=== PATIENT | female | born 1975 | race Caucasian/White ===

== ENCOUNTER 2020-05-12 16:41 | Outpatient (CLI) | payer OTHER, SELFPAY ==
--- NOTE | ~2020-05-12 | MM_ITS ---
EXAMINATION: MM screening brittany BI w marilyn HISTORY: Screening TECHNIQUE: Craniocaudal and mediolateral oblique 3-D tomosynthesis images were obtained and synthetic 2-D images were generated. CAD analysis was submitted and interpreted. COMPARISON: Comparison to multiple prior studies sequentially, with oldest reviewed study dated 05/2016. BREAST PARENCHYMAL COMPOSITION: There are scattered areas of fibroglandular density. FINDINGS: Bilateral breast asymmetries are stable. There is no evidence of suspicious mass, calcifica tion, or architectural distortion to suggest malignancy in either breast. There has been no suspiciou s interval change. IMPRESSION: 1. No mammographic evidence of malignancy. 2. Recommend routine screening mammography in one year. BI-RADS Category 2: Benign finding(s). Reviewed, dictated and finalized at location A.
== END 2020-05-12 16:42 | disposition home or self-care (01) ==
LOC: ANHIMG 16:44
PROVIDERS: PCP Obstetrics & Gynecology; Visit Provider Obstetrics & Gynecology
DX: Z12.31 Encounter for screening mammogram for malignant neoplasm of breast (principal)
CPT/HCPCS: 77063; 77067

== ENCOUNTER 2021-07-30 10:07 | Outpatient (CLI) | payer BC, SELFPAY ==
--- NOTE | ~2021-07-30 | MM_ITS ---
EXAMINATION: MM screening brittany BI w marilyn HISTORY: Screening mammogram TECHNIQUE: Craniocaudal and mediolateral oblique 3-D tomosynthesis images were obtained and synthetic 2-D images were generated. CAD analysis was submitted and interpreted. COMPARISON: No prior mammogram is available for comparison at this institution. BREAST PARENCHYMAL COMPOSITION: The breasts are heterogeneously dense, which may obscure small masses . FINDINGS: There is a biopsy marker on the right; history of prior benign right breast biopsy. There i s no evidence of suspicious mass, calcification, or architectural distortion to suggest malignancy in either breast. There has been no suspicious interval change. IMPRESSION: 1. No mammographic evidence of malignancy. 2. Recommend routine screening mammography in one year. BI-RADS Category 1: Negative Reviewed, dictated and finalized at location A.
== END 2021-07-30 10:08 | disposition home or self-care (01) ==
LOC: ANHIMG 10:12
PROVIDERS: PCP Obstetrics & Gynecology; Visit Provider Obstetrics & Gynecology
DX: Z12.31 Encounter for screening mammogram for malignant neoplasm of breast (principal)
CPT/HCPCS: 77063; 77067

== ENCOUNTER 2023-03-14 15:23 | Outpatient (CLI) | payer BC, SELFPAY ==
--- NOTE | ~2023-03-14 | MM_ITS ---
EXAMINATION: MM screening brittany BI w marilyn HISTORY: Screening mammogram TECHNIQUE: Craniocaudal and mediolateral oblique 3-D tomosynthesis images were obtained and synthetic 2-D images were generated. CAD analysis was submitted and interpreted. COMPARISON: 07/30/2021, 05/12/2020, bilateral screening mammogram examinations BREAST PARENCHYMAL COMPOSITION: The breasts are heterogeneously dense, which may obscure small masses . FINDINGS: There is a biopsy marker on the right; history of prior benign right breast biopsy. Occasio nal benign microcalcifications are again present. There is no evidence of suspicious mass, calcificat ion, or architectural distortion to suggest malignancy in either breast. There has been no suspicious interval change. IMPRESSION: 1. No mammographic evidence of malignancy. 2. Recommend routine screening mammography in one year. BI-RADS Category 2: Benign finding(s). Reviewed, dictated and finalized at location A.
== END 2023-03-14 15:24 | disposition home or self-care (01) ==
PROVIDERS: PCP Obstetrics & Gynecology; Visit Provider Obstetrics & Gynecology
DX: Z12.31 Encounter for screening mammogram for malignant neoplasm of breast (principal)
CPT/HCPCS: 77063; 77067

== ENCOUNTER 2025-05-13 09:55 | Outpatient (CLI) | payer BC, SELFPAY ==
--- NOTE | ~2025-05-13 | MM_ITS ---
EXAMINATION: MM screening brittany BI w marilyn HISTORY: Screening TECHNIQUE: Craniocaudal and mediolateral oblique 3-D tomosynthesis images were obtained and synthetic 2-D images were generated. CAD analysis was submitted and interpreted. COMPARISON: Comparison to multiple prior studies sequentially, with oldest reviewed study dated 12/14. BREAST PARENCHYMAL COMPOSITION: Dense: The breasts are heterogeneously dense, which may obscure small masses FINDINGS: The right breast is stable without evidence for malignancy. There are developing masses in the lower inner quadrant of the left breast anteriorly and in the upper outer quadrant of the left br east, middle third. IMPRESSION: 1. Developing left breast masses. 2. Additional mammographic views and possible breast ultrasound are recommended. BI-RADS Category 0: Incomplete: Needs additional imaging evaluation. Reviewed, dictated and finalized at location A. IMPRESSION: 1. Developing left breast masses. 2. Additional mammographic views and possible breast ultrasound are recommended . BI-RADS Category 0: Incomplete: Needs additional imaging evaluation.
--- OUTSIDE RECORDS SUMMARY | 2025-05-13 10:37 | XMS_ITS | Clinical Summary ---
Author Organization [facility] Address [address] [place] [address] Care Team Providers Care Battery Assembler Dry Cell Name Role Phone Sree Bal MD Primary Care Provider [phone] Medications levothyroxine 150 mcg tablet Take 150 mcg by mouth daily demi chef. Active Active Problems Problem Noted Date Diagnosed Date Breast density 01/02/2018 Mammographic microcalcification 01/02/2018 Abnormal ultrasound of breast 01/02/2018 Family History Medical History Relation Name Comments Lung Cancer Maternal Grandmother Relation Name Status Comments Maternal Grandmother (Age 83) Un known age at diag Social History Tobacco Use Types Packs/Day Years Used Date Smoking Tobacco: Never Alcohol Use Standard Drinks/Week Comments Yes 0 (1 standard drink = 0.6 oz pur e alcohol) Rare Comments No Sex and Gender Information Value Date Recorded Sex Assigned at Not on file Legal Sex Female 9:38 AM CDT Gender Identity Not on file Sexual Orientation Not on file Last Filed Vital Signs Vital Sign Reading Time Taken Comments Blood Pressure 120/68 01/11/2018 9:12 AM CDT Pulse 90 01/11/2018 9:12 AM CDT Temperature 36.7 C (98.1 F) 01/11/2018 9:12 AM CDT Respiratory Rate 16 01/11/2018 9:12 AM CDT Oxygen Saturation 97% 01/11/2018 9:12 AM CDT Inhaled Oxygen Concentration - - Weight 89.7 kg (197 lb 12.8 oz) 01/11/2018 9:12 AM CDT Height 182.9 cm (6') 01/11/2018 9:12 AM CDT Body Mass Index 26.83 01/11/2018 9:12 AM CDT Plan of Treatment Health Maintenance Due Date Last Done Comments DTAP/TDAP/TD VACCINES (1 - Tdap) 1992 HEPATITIS B VACCINES (1 of 3 - 19+ 3-dose series) 1992 HPV/Cotest (21-29) 1994 CERVICAL CANCER SCREENING 2003 HPV/Cotest (30-65) 2003 PAP SMEAR 2003 COLORECTAL SCREENING 2018 Colorectal Cancer Screening 2018 FIT-DNA Q 3 years 2018 FIT/FOBT Q 1 year 2018 Flex Sig/CT Colonography Q 5 years 2018 BREAST CANCER SCREENING 01/02/2019 01/03/20 18, 12/14/2017, 12/14/2017, Additional history exists ZOSTER VACCINE (1 of 2) 2023 INFLUENZA VACCINE (#1) 2025 Procedures Procedure Name Priority Date/Time Associated Diagnosis Comments MAMMOGRAM REPORT Routine 01/02/2018 from Last 3 Months or Most Recently Relevant to Health Maintenance Results * MAMMOGRAM REPORT (01/02/2018) us Abstract Provider MAMMO ORDERABLES Final Result [facility] from Last 3 Months or Most Recently Relevant to Health Maintenance Care Teams Battery Assembler Dry Cell Relationship Specialty Start Date End Date Sree Bal MD PCP - General Internal Medicine 01/11/18
== END 2025-05-13 09:56 | disposition home or self-care (01) ==
PROVIDERS: PCP Obstetrics & Gynecology; Visit Provider Student in an Organized Health Care Education/Training Program
DX: Z12.31 Encounter for screening mammogram for malignant neoplasm of breast (principal); N63.24 Unspecified lump in the left breast, lower inner quadrant; N63.21 Unspecified lump in the left breast, upper outer quadrant
CPT/HCPCS: 77063; 77067

== ENCOUNTER 2025-06-05 11:08 | Outpatient (CLI) | payer BC, SELFPAY ==
--- NOTE | ~2025-06-05 | MMUS_ITS ---
EXAMINATION: US breast LT complete, MM diagnostic brittany LT w marilyn HISTORY: Inconclusive mammogram. Developing left breast masses. TECHNIQUE: [Additional images of the [[left breast]] were performed using full field digital mammography. 3-D tomosynthesis were also obtained and synthetic 2- D images were generated. CAD analysis was submitted and interpreted. High resolution [left breast ultrasound was performed.] ] COMPARISON: Mammograms from 05/13/2025, 03/14/2023 and 07/30/2021 BREAST PARENCHYMAL COMPOSITION: The breasts are heterogeneously dense, which may obscure small masses FINDINGS: MAMMOGRAPHIC FINDINGS: There is a 1.2 cm obscured mass in the left breast at the 9:00 position middle depth.The finding corresponds with a 1.2 cm hypoechoic cyst versus solid mass by sonography.The finding is probably benign. There is an asymmetry in the outer left breast, posterior depth, seen in the spot compression left craniocaudal projection. No convincing sonographic correlate. The finding is probably benign. ULTRASOUND: There is a 1.2 x 1.2 0.7 cm wide than tall well-circumscribed hypoechoic cyst versus solid mass in the left breast at the 9:00 position. The finding is wider than tall. No internal color Doppler flow. No posterior acoustic shadowing. There is a mammographic correlate. The finding is probably benign. There is a 4 x 3 mm hypoechoic cyst versus solid mass in the left breast at 3:00 position 6 cm from the nipple anterior depth. No internal color Doppler flow. No posterior acoustic shadowing. The finding is probably benign. IMPRESSION/RECOMMENDATION: 1. Probably benign findings in the left breast as above. A diagnostic left breast mammogram in a diagnostic left breast ultrasound in 6 months is recommended. BIRADS 3-Pobably Benign Reviewed, dictated and finalized at location Q. IMPRESSION/RECOMMENDATION: 1. Probably benign findings in the left breast as above. A diagnostic left anny st mammogram in a diagnostic left breast ultrasound in 6 months is recommended. BIRADS 3-Pobably Benign IMPRESSION/RECOMMENDATION: 1. Probably benign findings in the left breast as above. A diagnostic left anny st mammogram in a diagnostic left breast ultrasound in 6 months is recommended. BIRADS 3-Pobably Benign
--- OUTSIDE RECORDS SUMMARY | 2025-06-05 11:53 | XMS_ITS | Encounter Summary ---
Author Organization [facility] Address Formerly [facility] [place] [address] Care Team Providers Care Russian History Professor Name Role Phone Jessica Elias Primary Care Provider Hunter Shrestha Primary Care Provider [phone] Encounter Details Date Type Department Care Team (Late st Contact Info) Description 07/30/2012 Abstract [facility] Conversion Md, Generic Conversion, Social History Tobacco Use Types Packs/Day Years Used Date Smoking Tobacco: Never Assessed Comments Unknown Sex and Gender Information Value Date Recorded Sex Assigned at Not on file Legal Sex Female 7:41 PM CDT Gender Identity Not on file Sexual Orientation Not on file documented as of this encounter Plan of Treatment Not on file documented as of this encounter Visit Diagnoses Not on filedocumented in this encounter Care Teams Russian History Professor Relationship Specialty Start Date End Date Jessica Elias APNP PCP - General NURSE PRACTITIONER 10/29/18 02/24/22 Hunter Bal FNP [id number] [facility] [address] [place] [address] PCP - General NURSE PRACTITIONER 02/25/22 documented as of this encounter
--- OUTSIDE RECORDS SUMMARY | 2025-06-05 11:53 | XMS_ITS | Clinical Summary ---
Author Organization [facility] Address [address] [place] [address] Care Team Providers Care Licensed Professional Counselor Name Role Phone Sree Bal MD Primary Care Provider [phone]- [phone] Medications levothyroxine 150 mcg tablet Take 150 mcg by mouth daily sheetrock applicator. Active Active Problems Problem Noted Date Diagnosed [...] Recently Relevant to Health Maintenance Care Teams Licensed Professional Counselor Relationship Specialty Start Date End Date Sree Bal MD PCP - General Internal Medicine 01/11/18
--- OUTSIDE RECORDS SUMMARY | 2025-06-05 11:53 | XMS_ITS | Clinical Summary ---
Author Organization [facility] Address [address] [place] [address] Care Team Providers Care Dining Car Server Name Role Phone Hunter Bal Lachelle ESCOBAR Primary Care Provider [phone] Allergies Active Allergy Reactions Criticality Noted Date Comments Sulfa Antibiotics Unknown Trimethoprim Unknown 02/22/2022 Medications levothyroxine 125 MCG tablet Take 1 tablet by mouth daily. 1 9 Active levonorgestrel (MIRENA, 52 MG,) 20 MCG/DAY IUD see administration instructions. Active Multiple Vitamin (MULTIVITAMIN ADULT OR) Take 1 tablet by mouth daily. Active Active Problems Problem Noted Date Diagnosed Date Fibroma of skin 10/29/2018 Abnormal ultrasound of breast 01/02/2018 Breast density 01/02/2018 Mammographic microcalcification 01/02/2018 Benign neoplasm of skin of upper limb, including shoulder 10/02/2016 Overview (02/22/2022): Benign neoplasm of skin of upper limb, including shoulder Anxiety state 06/10/2015 Overweight 06/10/2015 Atypical squamous cells of u ndetermined significance (ASCUS) on Papanicolaou smear of cervix 05/30/2012 Resolved Problems Problem Noted Date Diagnosed Date Resolved Date Screening for colon cancer 01/17/2025 0 01/20/2025 Screening for colon cancer 01/17/2025 0 03/17/2025 Encounters Date Type Department Care Team Description 03/12/2025 Telephone [facility] General Surgery - [place] [address] [place] [address] Keegan Daily MD Other from Last 3 Months Immunizations Immunization Administration Dates Next Due Influenza (Generic) 08/07/2012 Social History Tobacco Use Types Packs/Day Years Used Date Smoking Tobacco: Never Smokeless Tobacco: Never Alcohol Use Standard Drinks/Week Comments Yes 0 (1 standard drink = 0.6 oz pur e alcohol) Social PHQ-2 Answer Date Recorded PHQ-2 Score - If the patient scores above 3, please move on to questions 3-9 0 03/08/2022 Comments No Sex and Gender Information Value Date Recorded Sex Assigned at Not on file Legal Sex Female 7:41 PM CDT Gender Identity Not on file Sexual Orientation Not on file Last Filed Vital Signs Vital Sign Reading Time Taken Comments Blood Pressure 130/74 03/08/2022 9:20 AM CDT Pulse 100 03/08/2022 9:20 AM CDT Temperature 36.8 C (98.2 F) 03/08/2022 9:20 AM CDT Respiratory Rate 16 03/08/2022 9:20 AM CDT Oxygen Saturation 96% 03/08/2022 9:20 AM CDT Inhaled Oxygen Concentration - - Weight 87.1 kg (192 lb) 03/08/2022 9:20 AM CDT Height 180.3 cm (5' 11) 03/08/2022 9:20 AM CDT Body Mass Index 26.78 03/08/2022 9:20 AM CDT Plan of Treatment Health Maintenance Due Date Last Done Comments Colorectal Cancer Screening Colonoscopy (10 Years) 1973 Annual Physical 1976 Hepatitis C 1991 DTaP, Tdap and Td Vaccines ( 1 - Tdap) 1992 Hepatitis B Vaccines (1 of 3 - 19+ 3-dose series) 1992 Cervical Cancer Screening Pa p with HPV Testing (Age 30 to 64) Every 5 Years 2003 Mammogram Screening 2013 Pneumococcal Vaccine: 50+ Years (1 of 1 - PCV) 2023 Zoster Vaccines (1 of 2) 2023 PHQ-2 (Physician [place]) 10/02/2024 COVID-19 Vaccine (1 - 2023-2 5 season) 2025 Cervical Cancer Screening Pa p Smear (Age 30 to 64) Every 3 Years 01/13/2026 01/13/2023, 08/16/2021 Cervical Cancer Screening wi th HPV 01/13/2026 Meningococcal B Vaccine Aged Out No l onger eligible based on patient's age to complete this topic Meningococcal Vaccine Aged Out No ender alison eligible based on patient's age to complete this topic RSV Immunizations Under 20 Months Aged Out No longer eligible b ased on patient's age to complete this topic Insurance [facility] Care Teams Dining Car Server Relationship Specialty Start Date End Date Hunter Bal FNP [id number] [facility] [address] [place] [id number] PCP - General NURSE PRACTITIONER 02/25/22
== END 2025-06-05 11:09 | disposition home or self-care (01) ==
LOC: ANHFOHIMG 11:11
PROVIDERS: PCP Obstetrics & Gynecology; Visit Provider Student in an Organized Health Care Education/Training Program
DX: N63.20 Unspecified lump in the left breast, unspecified quadrant (principal); R92.8 Other abnormal and inconclusive findings on diagnostic imaging of breast
CPT/HCPCS: 76641; 77061; 77065; G0279